=== PATIENT | female | born 1980 | race Caucasian/White ===

== ENCOUNTER 2017-09-26 18:00 | Emergency (ER) | payer OTHER ==
[~2017-09-26] VITALS: Ht 162.6 cm; Wt 84.0 kg
[2017-09-26 18:03] VITALS: BP 136/84; PULSE 82; RESP 16; TEMP 98.4; O2SAT 100
[2017-09-26] MEDS ORDERED: LEXA20TA PO (18:19)
[2017-09-26] MEDS ORDERED: ZANT150T2 PO (18:19)
--- NOTE | 2017-09-26 18:43 | PD ---
HPI Chief Complaint: Injury Time Seen by Provider: 18:11 Travel History International Travel<30 days: No Contact w/Intl Traveler<30days: No Traveled to known affect area: No History of Present Illness HPI 37-year-old female with left elbow pain. Patient had a mechanical fall falling backwards bracing her fall with both hands. When She made impact with the ground she felt a pop and immediate pain in the left elbow. She has pain with flexion and extension of the elbow. Pain is relieved with rest. Symptom severity is moderate. No other injuries. PFSH Past Medical History Anxiety: Yes Depression: Yes Headaches: Yes Tetanus Vaccination: Unknown Influenza Vaccination: No ?: Not LMP: 09/18/2017 Past Surgical History Section: Yes Social History Alcohol Use: Yes (occ) Tobacco Use: No Substance Use: No Allergies-Medications (Allergen,Severity, Reaction): Coded Allergies: No Known Allergies (Unverified , 09/26/17) Reported Meds & Prescriptions Reported Meds & Active Scripts Active Reported Zantac (Ranitidine HCl) 150 Mg Tab 150 Mg PO HS Lexapro (Escitalopram Oxalate) 20 Mg Tab 20 Mg PO DAILY Review of Systems Except as stated in HPI: all other systems reviewed are Neg General / Constitutional: No: Fever Eyes: No: Visual changes HENT: No: Headaches Cardiovascular: No: Chest Pain or Discomfort Respiratory: No: Shortness of Breath Gastrointestinal: No: Abdominal Pain Genitourinary: No: Dysuria Physical Exam Narrative GENERAL: Alert well-appearing female. SKIN: Warm and dry. HEAD: Normocephalic. Atraumatic. EYES: No scleral icterus. No injection or drainage. NECK: Supple, trachea midline. No JVD or lymphadenopathy. CARDIOVASCULAR: Regular rate and rhythm without murmurs, gallops, or rubs. RESPIRATORY: Breath sounds equal bilaterally. No accessory muscle use. GASTROINTESTINAL: Abdomen soft, non-tender, nondistended. MUSCULOSKELETAL: No cyanosis, or edema. Left upper extremity: + Tenderness and swelling to the left elbow. No obvious deformity. Limited flexion and extension due to pain. 2+ brachial and radial pulse. Normal sensation. Brisk cap refill. Data Data Last Documented VS Vital Signs Date Time Temp Pulse Resp B/P (MAP) Pulse Ox O2 Delivery O2 Flow Rate FiO2 09/26/17 18:03 98.4 82 16 136/84 (101) 100 Orders Orders Elbow, Complete (4 Vws) (09/26/17 ) Splint Or Brace Apply/Monitor (09/26/17 19:16) MDM Medical Decision Making Medical Screen Exam Complete: Yes Emergency Medical Condition: Yes Differential Diagnosis Fracture, contusion, sprain Narrative Course 37 y/o female with left elbow pain s/p fall today. The extremity is neurovascularly intact. X-ray left elbow: Avulsion Fracture of the lateral humeral epicondyle and coronoid process Left upper extremity was placed in a posterior long arm splint and sling by transfill technician. Patient is to follow-up with Dr. Lee. Diagnosis Primary Impression: Left elbow fracture Qualified Codes: S42.402A - Unspecified fracture of lower end of left humerus , initial encounter for closed fracture Referrals: Orthopedist Additional Instructions: Splint and sling as directed. [id number] Tylenol as needed for pain. Ibuprofen 800 mg as needed for pain Follow-up with orthopedic Scripts Ibuprofen (Ibuprofen) 800 Mg Tab 800 MG PO Q6HR Y for PAIN, #40 TAB 0 Refills Prov: Gwen Bender 09/26/17 Disposition: 01 DISCHARGE HOME Condition: Stable Gwen Bender Sep 26, 2017 18:43
--- NOTE | 2017-09-26 19:09 | RADRPT ---
EXAM DATE/TIME: 09/26/2017 18:47 [facility] COMPARISON: No previous studies available for comparison. INDICATIONS : Fell roller skating onto left elbow MEDICAL HISTORY : None. SURGICAL HISTORY : Left elbow surgery ENCOUNTER: Initial ACUITY: 1 day PAIN SCORE: 5/10 LOCATION: Left elbow FINDINGS: Multiple view examination of the left elbow demonstrates a sliver of motion fracture along the latera l humeral epicondyle small apical fracture of the coronoid process. Bony alignment is otherwise well maintained. Fat-pad is not clearly visualized suggesting joint effusion. CONCLUSION: Avulsion fracture of the lateral humeral epicondyle and coronoid process Suspected joint effusion. Vern Chapa MD on September 26, 2017 at 19:05 Board Certified Radiologist. This report was verified electronically.
[2017-09-26] MEDS ORDERED: IBUP1TAB7 PO (19:23)
== END 2017-09-26 19:45 | disposition home or self-care (01) ==
LOC: PHEFT 18:00
DX: S42.432A Displaced fracture (avulsion) of lateral epicondyle of left humerus, initial encounter for closed fracture (principal); W19.XXXA Unspecified fall, initial encounter; F41.8 Other specified anxiety disorders
CPT/HCPCS: 29105; 73080